=== PATIENT | male | born 1960 | race African-American/Black ===

== ENCOUNTER 2017-07-03 21:47 | Emergency (ER) | payer BC, OTHER ==
[~2017-07-03 21:47] MED LIST: ISOVUE-370 76%-LOCM 1 ML ONE
[2017-07-03] MEDS ORDERED: Ondansetron ODT 4 MG TAB ONE (21:53)
[2017-07-03 22:27] LABS: #Basophils 0.1 thou/uL (0.0-0.2); #Eosinphils 0.1 thou/uL (0.0-0.7); #Monocytes 0.4 thou/uL (0.11-0.59); #Neutrophils 3.2 thou/uL (1.40-6.50); %Basophils 1.8 % (0.0-1.0); %Eosinophils 2.6 % (0.0-10.0); %Lymphocytes 21.5 % (21.0-51.0); %Monocytes 8.8 % (0.0-10.0); Hematocrit 45.8 % (42.0-52.0); Red Blood Cell (RBC) Count 5.08 mill/uL (4.70-6.10); White Blood Cell (WBC) Count 4.9 thou/uL (4.8-10.8)
[2017-07-03 22:49] LABS: ALT (SGPT) 109 U/L (8-55); AST (SGOT) 16 U/L (5-34); Alkaline Phosphatase 124 U/L (40-150); Anion Gap 11 mmol/L (10-20); BUN (Urea Nitrogen) 14 mg/dL (8.4-25.7); Bilirubin, Total 0.8 mg/dL (0.2-1.2); Calc. Creatinine Clearance 0 mL/min (70-130); Calcium 10.6 mg/dL (7.8-10.44); Carbon Dioxide 25 mmol/L (22-29); Chloride 106 mmol/L (98-107); Estimated GFR-MDRD Greater than 90; Lipase 10 U/L (8-78); Protein, Total 7.1 g/dL (6.0-8.3)
[2017-07-03 23:03] LABS: Lactic Acid - Sepsis 1.8 mmol/L (0.5-2.2)
[2017-07-03] MEDS ORDERED: Morphine 10 MG/ML VIAL ONE (23:08)
[2017-07-03 23:12] LABS: Troponin I Less than 0.010 ng/mL (< 0.028)
[2017-07-04 03:14] LABS: Bilirubin Negative (Negative); Blood, Urine Small (Negative); Glucose, Urine (Dipstick) Negative (Negative); Ketone, Urine Negative (Negative); Nitrite Positive (Negative); Protein, Urine (Dipstick) Trace mg/dL (Neg-Trace); Urobilinogen 0.2 mg/dL (0.2-1.0)
[2017-07-04 03:32] LABS: Bacteria/HPF 1+ HPF (None Seen); RBC/HPF 0-3 HPF (0-3); Squamous Epithelial 0-3 HPF (0-3)
[2017-07-04 03:33] LABS: Hyaline Casts/LPF NONE SEEN LPF (0-3 Hyaline)
--- NOTE | 2017-07-04 07:14 | CT ---
CT OF THE ABDOMEN AND PELVIS WITH IV CONTRAST ONLY: Date: 07/03/17 INDICATION: Right lower quadrant abdominal pain. FINDINGS: There is postprocedural change of partial colectomy and establishment of left lower quadrant colosto my. There is some wall thickening involving the colon just proximal to the ostomy site. There is no evidence of bowel obstruction. The lung bases are clear. The liver, spleen, pancreas, and adrenal glands are normal appearing. The kidneys are normal appearing. There are moderate calcifications involving the abdominal aorta. The cecum is seen protruding into the lower aspect of the pelvis. There is nonspecific presacral sof t tissue swelling. The rectum is not well seen and may be surgically absent. Recommend correlation o f clinical exam. There is wall thickening involving the bladder with intraluminal gas. There is fluid and gas seen at the level of the anus. No definite acute osseous abnormality is evident. IMPRESSION: 1. Postsurgical changes most consistent with partial colectomy with establishment of left lower maría drant colostomy. There is wall thickening involving the colon just proximal to the ostomy site suspi cious for mild colitis. 2. Poor visualization of the rectum. This may be related to surgical absence. There is fluid and ga s collection measuring 4.0 cm at the level of the anus. The cecum does protrude into the lower pelvi s; however, portions of this fecal and gas material may reflect a component of the residual rectum. Correlation with patient's surgical history would be helpful. Follow-up examination with utilization of enteric contrast may be helpful to delineate the bowel anatomy. 3. Wall thickening involving the bladder may reflect cystitis. There is intraluminal gas within the bladder. Recommend correlation for recent instrumentation. POS: [facility]
== END 2017-07-04 04:05 | disposition home or self-care (01) ==
LOC: ERS 21:47
DX: K52.9 Noninfective gastroenteritis and colitis, unspecified (principal); N39.0 Urinary tract infection, site not specified; Z79.899 Other long term (current) drug therapy
CPT/HCPCS: 36415; 74177; 80053; 81003; 81015; 82553; 83605; 83690; 84484; 85025; 93005; 96361; 96374; 96375; J1170; J2270; Q0162